=== PATIENT | female | born 1955 | race Caucasian/White ===

== ENCOUNTER 2017-12-09 15:48 | Inpatient (IN) | payer MEDICARE, OTHER ==
[~2017-12-09] VITALS: Ht 162.6 cm; Wt 88.8 kg
[~2017-12-09 15:48] MED LIST: CYCL-394 PO; ESCI20TA29 PO; FURO-150 PO; GABA-341 PO; GLIP-126 PO; LOP25T PO; LOSA25TA96 PO; LYR25C PO; METF500T PO; PANT40TA39 PO; QUET150T2 PO; ROSU20TA PO
[2017-12-09 16:11] LABS: BASOPHILS % (AUTO) 0.6 % (0-1); EOSINOPHILS # (AUTO) 0.1 X10'3 (0-0.9); EOSINOPHILS % (AUTO) 1.6 % (0-6); HEMATOCRIT 27.5 % (35.0-45.0); HEMOGLOBIN 8.8 g/dl (12.0-16.0); LYMPHOCYTES # (AUTO) 1.1 X10'3 (1.1-4.8); LYMPHOCYTES % (AUTO) 14.5 % (21-51); MEAN CORPUSCULAR HGB CONC 32.1 % (33.0-36.5); MEAN CORPUSCULAR VOLUME 71.6 FL (78-98); MEAN PLATELET VOLUME 7.2 FL (7.4-10.4); MONOCYTES # (AUTO) 0.4 X10'3 (0-0.9); MONOCYTES % (AUTO) 5.6 % (2-12); NEUTROPHILS # (AUTO) 6.1 X10'3 (1.8-7.7); NEUTROPHILS % (AUTO) 77.7 % (42-75); PLATELET COUNT 244 X10'3 (140-440); RED BLOOD COUNT 3.84 X10'6 (4.20-5.60); RED CELL DISTRIBUTION WIDTH 20.8 % (11.5-14.5); WHITE BLOOD COUNT 7.8 X10'3 (4.5-11.0)
[2017-12-09 16:23] LABS: PARTIAL THROMBOPLASTIN TIME 23 SECONDS (22-32)
[2017-12-09 16:33] LABS: ALANINE AMINOTRANSFERASE 22 U/L (12-78); ALBUMIN 3.6 G/DL (3.4-5.0); ALBUMIN/GLOBULIN RATIO 0.9 (1.1-1.5); ALKALINE PHOSPHATASE 150 IU/L (46-116); ANION GAP 10 (8-16); ASPARTATE AMINO TRANSFERASE 31 U/L (10-37); BILIRUBIN,TOTAL 0.3 MG/DL (0.1-1.0); BLOOD UREA NITROGEN 23 MG/DL (7-18); BUN/CREATININE RATIO 20.9 (6.6-38.0); CALCIUM 9.7 MG/DL (8.5-10.1); CHLORIDE 103 MMOL/L (99-107); GLUCOSE 320 MG/DL (70-104); POTASSIUM 4.4 MMOL/L (3.5-5.1); SODIUM 140 MMOL/L (135-145); TOTAL CARBON DIOXIDE 26.9 MMOL/L (24-32); TOTAL PROTEIN 7.6 G/DL (6.4-8.2); eGFR 50 ML/MIN
[2017-12-09] MEDS ORDERED: albuterol 2.5 MG/3 ML nebule CONTNEB PRN (16:45)
[2017-12-09] MEDS ORDERED: magnesium 2GM in 50ml NS 50 ML IV ONE (16:50)
[2017-12-09] MEDS ORDERED: LORazepam 2 mg/ml vial IV ONE (19:25)
[2017-12-09] MEDS ORDERED: morphine 4 MG/ML inj SYRINge IV ONE (19:40)
[2017-12-09] MEDS ORDERED: furosemide 10 MG/1 ML 10ml inj IV ONE (19:55)
[2017-12-09] MEDS ORDERED: mag hydrox/Alum hydrox/simeth 30ml oral suspension PO PRN (20:50)
[2017-12-09] MEDS ORDERED: potassium Cl 20 mEq SR tablet PO PRN ×2 (20:50)
[2017-12-09] MEDS ORDERED: ondansetron/PF 4mg/2ml inj IV PRN (20:50)
[2017-12-09] MEDS ORDERED: potassium Cl 40MEQ/NS 500ml 500 ML IV PRN ×2 (20:50)
[2017-12-09] MEDS ORDERED: acetaminophen 325mg tablet PO PRN (20:50)
[2017-12-09] MEDS ORDERED: magnesium hydroxide 30ml (MOM) UD suspension PO PRN (20:50)
[2017-12-09] MEDS ORDERED: cyclobenzaprine 10mg tablet PO PRN (20:55)
[2017-12-09] MEDS ORDERED: glucagon, human recombinant 1mg kit SUBCUT PRN (21:00)
[2017-12-09] MEDS: insulin glargine (Lantus) pen - multi-dose SQ SCH (21:00)
[2017-12-09] MEDS ORDERED: dextrose ORAL solution 15 GM/59 ML bottle PO PRN ×2 (21:00)
[2017-12-09] MEDS ORDERED: dextrose 50%-water 50ml dispensing syringe IV PRN ×2 (21:00)
[2017-12-09] MEDS ORDERED: MESSAGE TO PHARMACY PO ONE (21:00)
[2017-12-09] MEDS ORDERED: LORazepam 2 mg/ml vial IV PRN (21:10)
[2017-12-09 21:12] LABS: HEMOGLOBIN A1C 8.7 % (4.5-6.2)
[2017-12-09] MEDS: QUETIAPINE 150 MG TAB.SR.24H PO SCH (22:23)
[2017-12-09] MEDS ORDERED: ipratropium/albuterol 3ml nebule NEB PRN (22:40)
[2017-12-09] MEDS: ipratropium/albuterol 3ml nebule NEB PRN (23:25)
[2017-12-10] MEDS: pregabalin 25mg capsule PO SCH ×3 (00:02→17:50)
[2017-12-10] MEDS: heparin, porcine 5000 units/ml vial SQ SCH ×3 (00:02→17:48)
[2017-12-10] MEDS: gabapentin 100mg capsule PO SCH ×4 (01:43→20:34)
[2017-12-10] MEDS: morphine 4 MG/ML inj SYRINge IV PRN ×2 (01:44→20:39)
[2017-12-10] MEDS: ipratropium/albuterol 3ml nebule NEB PRN ×3 (03:24→19:57)
[2017-12-10 04:15] LABS: BASOPHILS % (AUTO) 0.5 % (0-1); EOSINOPHILS # (AUTO) 0.2 X10'3 (0-0.9); EOSINOPHILS % (AUTO) 3.1 % (0-6); HEMOGLOBIN 7.7 g/dl (12.0-16.0); LYMPHOCYTES # (AUTO) 1.4 X10'3 (1.1-4.8); LYMPHOCYTES % (AUTO) 23.4 % (21-51); MEAN CORPUSCULAR HGB CONC 32.1 % (33.0-36.5); MEAN CORPUSCULAR VOLUME 71.7 FL (78-98); MEAN PLATELET VOLUME 7.2 FL (7.4-10.4); MONOCYTES # (AUTO) 0.5 X10'3 (0-0.9); MONOCYTES % (AUTO) 8.6 % (2-12); NEUTROPHILS # (AUTO) 3.9 X10'3 (1.8-7.7); NEUTROPHILS % (AUTO) 64.4 % (42-75); PLATELET COUNT 188 X10'3 (140-440); RED BLOOD COUNT 3.35 X10'6 (4.20-5.60); RED CELL DISTRIBUTION WIDTH 20.4 % (11.5-14.5)
[2017-12-10 04:32] LABS: ALBUMIN 3.2 G/DL (3.4-5.0); ANION GAP 7 (8-16); BLOOD UREA NITROGEN 20 MG/DL (7-18); BUN/CREATININE RATIO 22.2 (6.6-38.0); CALCIUM 9.3 MG/DL (8.5-10.1); CHLORIDE 101 MMOL/L (99-107); CHOLESTEROL 176 MG/DL (0-200); GLUCOSE 201 MG/DL (70-104); HDL CHOLESTEROL 35 MG/DL (35-60); LDL CHOLESTEROL 88 MG/DL (50-100); POTASSIUM 4.7 MMOL/L (3.5-5.1); SODIUM 136 MMOL/L (135-145); TOTAL CARBON DIOXIDE 27.7 MMOL/L (24-32); TRIGLYCERIDES 359 MG/DL (20-135); eGFR 63 ML/MIN
[2017-12-10] MEDS: pantoprazole 40mg Tablet.DR PO SCH ×2 (07:49→20:33)
[2017-12-10] MEDS: losartan 25mg tablet PO SCH (07:49)
[2017-12-10] MEDS: citalopram 20mg tablet PO SCH (07:50)
[2017-12-10] MEDS: metoprolol tartrate 25mg tablet PO SCH ×2 (07:50→20:33)
[2017-12-10] MEDS: atorvastatin 10mg tablet PO SCH (07:51)
[2017-12-10] MEDS: furosemide 10 MG/1 ML 10ml inj IV SCH (07:51)
[2017-12-10] MEDS: K and/or MAG REPLACEMENT MC SCH (08:00)
[2017-12-10] MEDS ORDERED: nicotine 21mg patch - 24 hr TD ONE (08:25)
[2017-12-10] MEDS: budesonide 0.5mg/2ml UD nebule IH SCH ×3 (08:57→19:58)
[2017-12-10] MEDS: insulin Lispro (HumaLOG) vial - multi-dose SQ SCH ×2 (09:05→20:49)
[2017-12-10 17:00] VITALS: BP 117/63
[2017-12-10 18:00] VITALS: BP 139/62
[2017-12-10] MEDS: QUETIAPINE 150 MG TAB.SR.24H PO SCH (20:33)
[2017-12-10] MEDS: ALPRAZolam 0.25mg tablet PO PRN (20:38)
[2017-12-10] MEDS: insulin glargine (Lantus) pen - multi-dose SQ SCH (20:46)
[2017-12-10 22:00] VITALS: BP 127/58
[2017-12-11] MEDS: pregabalin 25mg capsule PO SCH ×3 (00:09→16:10)
[2017-12-11] MEDS: heparin, porcine 5000 units/ml vial SQ SCH ×3 (00:10→16:10)
[2017-12-11 02:00] VITALS: BP 123/45
[2017-12-11] MEDS: gabapentin 100mg capsule PO SCH ×4 (02:12→20:03)
[2017-12-11 05:08] LABS: BASOPHILS % (AUTO) 0.7 % (0-1); EOSINOPHILS # (AUTO) 0.2 X10'3 (0-0.9); HEMATOCRIT 24.5 % (35.0-45.0); HEMOGLOBIN 7.9 g/dl (12.0-16.0); LYMPHOCYTES # (AUTO) 1.4 X10'3 (1.1-4.8); MEAN CORPUSCULAR HEMOGLOBIN 23.1 PG (27.0-31.0); MEAN CORPUSCULAR HGB CONC 32.2 % (33.0-36.5); MEAN CORPUSCULAR VOLUME 71.5 FL (78-98); MONOCYTES # (AUTO) 0.4 X10'3 (0-0.9); MONOCYTES % (AUTO) 8.2 % (2-12); NEUTROPHILS # (AUTO) 3.2 X10'3 (1.8-7.7); NEUTROPHILS % (AUTO) 60.1 % (42-75); PLATELET COUNT 188 X10'3 (140-440); RED BLOOD COUNT 3.43 X10'6 (4.20-5.60); RED CELL DISTRIBUTION WIDTH 20.1 % (11.5-14.5); WHITE BLOOD COUNT 5.3 X10'3 (4.5-11.0)
[2017-12-11 05:24] LABS: ANION GAP 9 (8-16); BLOOD UREA NITROGEN 21 MG/DL (7-18); CALCIUM 9.3 MG/DL (8.5-10.1); CHLORIDE 105 MMOL/L (99-107); CREATININE 0.84 MG/DL (0.40-0.90); GLUCOSE 165 MG/DL (70-104); POTASSIUM 4.1 MMOL/L (3.5-5.1); SODIUM 141 MMOL/L (135-145); TOTAL CARBON DIOXIDE 27.1 MMOL/L (24-32); eGFR 69 ML/MIN
[2017-12-11 06:00] VITALS: BP 136/66
[2017-12-11] MEDS: budesonide 0.5mg/2ml UD nebule IH SCH ×2 (07:06→20:59)
[2017-12-11] MEDS: ipratropium/albuterol 3ml nebule NEB PRN ×3 (07:06→20:59)
[2017-12-11] MEDS: K and/or MAG REPLACEMENT MC SCH (08:00)
[2017-12-11] MEDS: furosemide 10 MG/1 ML 10ml inj IV SCH (08:15)
[2017-12-11] MEDS: citalopram 20mg tablet PO SCH (08:16)
[2017-12-11] MEDS: metoprolol tartrate 25mg tablet PO SCH ×2 (08:17→20:03)
[2017-12-11] MEDS: losartan 25mg tablet PO SCH (08:17)
[2017-12-11] MEDS: atorvastatin 10mg tablet PO SCH (08:17)
[2017-12-11] MEDS: pantoprazole 40mg Tablet.DR PO SCH ×2 (08:19→20:03)
[2017-12-11] MEDS: morphine 4 MG/ML inj SYRINge IV PRN ×4 (08:21→21:17)
[2017-12-11] MEDS: insulin Lispro (HumaLOG) vial - multi-dose SQ SCH ×4 (09:45→21:12)
[2017-12-11 11:00] VITALS: BP 139/72
[2017-12-11] MEDS: nicotine 21mg patch - 24 hr TD SCH (12:16)
[2017-12-11] MEDS: ALPRAZolam 0.25mg tablet PO PRN (12:35)
[2017-12-11 15:00] VITALS: BP 115/57
[2017-12-11 16:29] LABS: RED BLOOD COUNT 3.78 X10'6 (4.20-5.60)
[2017-12-11 16:58] LABS: FERRITIN 16 NG/ML (8-252)
[2017-12-11 17:08] LABS: % IRON SATURATION 7 % (11-46); IRON 21 UG/DL (49-151); TOTAL IRON BINDING CAPACITY 314 UG/DL (259-388)
[2017-12-11] MEDS: doxycycline hyclate 100mg tablet.DR PO SCH (17:24)
[2017-12-11 18:00] VITALS: BP 152/71
[2017-12-11] MEDS: QUETIAPINE 150 MG TAB.SR.24H PO SCH (20:03)
[2017-12-11] MEDS: insulin glargine (Lantus) pen - multi-dose SQ SCH (21:11)
[2017-12-11 22:00] VITALS: BP 120/62
[2017-12-12] MEDS: ALPRAZolam 0.25mg tablet PO PRN ×2 (00:19→08:01)
[2017-12-12] MEDS: pregabalin 25mg capsule PO SCH ×2 (00:19→08:08)
[2017-12-12] MEDS: heparin, porcine 5000 units/ml vial SQ SCH ×2 (00:20→08:01)
[2017-12-12 02:00] VITALS: BP 94/52
[2017-12-12] MEDS: gabapentin 100mg capsule PO SCH ×2 (02:05→08:01)
[2017-12-12 05:46] LABS: BASOPHILS % (AUTO) 0.9 % (0-1); EOSINOPHILS # (AUTO) 0.2 X10'3 (0-0.9); EOSINOPHILS % (AUTO) 3.4 % (0-6); HEMATOCRIT 24.5 % (35.0-45.0); HEMOGLOBIN 7.9 g/dl (12.0-16.0); LYMPHOCYTES # (AUTO) 1.3 X10'3 (1.1-4.8); LYMPHOCYTES % (AUTO) 22.9 % (21-51); MEAN CORPUSCULAR HGB CONC 32.1 % (33.0-36.5); MEAN CORPUSCULAR VOLUME 71.6 FL (78-98); MEAN PLATELET VOLUME 7.6 FL (7.4-10.4); MONOCYTES # (AUTO) 0.5 X10'3 (0-0.9); NEUTROPHILS # (AUTO) 3.6 X10'3 (1.8-7.7); NEUTROPHILS % (AUTO) 63.8 % (42-75); PLATELET COUNT 187 X10'3 (140-440); RED BLOOD COUNT 3.43 X10'6 (4.20-5.60); RED CELL DISTRIBUTION WIDTH 19.6 % (11.5-14.5); WHITE BLOOD COUNT 5.7 X10'3 (4.5-11.0)
[2017-12-12 06:00] VITALS: BP 125/63
[2017-12-12 06:12] LABS: ALBUMIN 3.1 G/DL (3.4-5.0); ANION GAP 8 (8-16); BLOOD UREA NITROGEN 23 MG/DL (7-18); BUN/CREATININE RATIO 26.4 (6.6-38.0); CALCIUM 9.5 MG/DL (8.5-10.1); CHLORIDE 106 MMOL/L (99-107); CREATININE 0.87 MG/DL (0.40-0.90); GLUCOSE 172 MG/DL (70-104); POTASSIUM 4.6 MMOL/L (3.5-5.1); SODIUM 141 MMOL/L (135-145); TOTAL CARBON DIOXIDE 27.2 MMOL/L (24-32); eGFR 66 ML/MIN
[2017-12-12] MEDS: insulin Lispro (HumaLOG) vial - multi-dose SQ SCH (07:57)
[2017-12-12] MEDS: furosemide 10 MG/1 ML 10ml inj IV SCH (08:00)
[2017-12-12] MEDS: K and/or MAG REPLACEMENT MC SCH (08:00)
[2017-12-12] MEDS: morphine 4 MG/ML inj SYRINge IV PRN (08:02)
[2017-12-12] MEDS: citalopram 20mg tablet PO SCH (08:03)
[2017-12-12] MEDS: doxycycline hyclate 100mg tablet.DR PO SCH (08:03)
[2017-12-12] MEDS: nicotine 21mg patch - 24 hr TD SCH (08:03)
[2017-12-12] MEDS: atorvastatin 10mg tablet PO SCH (08:03)
[2017-12-12] MEDS: pantoprazole 40mg Tablet.DR PO SCH (08:03)
[2017-12-12] MEDS: losartan 25mg tablet PO SCH (08:03)
[2017-12-12] MEDS: metoprolol tartrate 25mg tablet PO SCH (08:03)
[2017-12-12] MEDS: budesonide 0.5mg/2ml UD nebule IH SCH (09:29)
[2017-12-12] MEDS: ipratropium/albuterol 3ml nebule NEB PRN (09:29)
[2017-12-12 11:00] VITALS: BP 128/65
[2017-12-12] MEDS ORDERED: DOXY-200 PO (12:00)
[2017-12-12] MEDS ORDERED: IPRA4AER IH (12:00)
[2017-12-12] MEDS ORDERED: NICO-687 TD (12:00)
== END 2017-12-12 14:15 | disposition home or self-care (01) | DRG 190 ==
LOC: ER 15:48 → ED HOLD 20:50 → PCU 3S 12-10 16:17
PROVIDERS: ADMIT Family Medicine; ATTEND Family Medicine
DX: J44.1 Chronic obstructive pulmonary disease with (acute) exacerbation (principal); I50.23 Acute on chronic systolic (congestive) heart failure; I48.91 Unspecified atrial fibrillation; D50.9 Iron deficiency anemia, unspecified; E11.9 Type 2 diabetes mellitus without complications; E78.00 Pure hypercholesterolemia, unspecified; F03.90 Unspecified dementia, unspecified severity, without behavioral disturbance, psychotic disturbance, mood disturbance, and anxiety; E78.5 Hyperlipidemia, unspecified; F41.9 Anxiety disorder, unspecified; M79.7 Fibromyalgia; F41.0 Panic disorder [episodic paroxysmal anxiety]; N28.9 Disorder of kidney and ureter, unspecified; F32.9 Major depressive disorder, single episode, unspecified; G89.29 Other chronic pain; M19.90 Unspecified osteoarthritis, unspecified site; R74.8 Abnormal levels of other serum enzymes; I11.0 Hypertensive heart disease with heart failure; I25.10 Atherosclerotic heart disease of native coronary artery without angina pectoris; K21.9 Gastro-esophageal reflux disease without esophagitis; F17.210 Nicotine dependence, cigarettes, uncomplicated; F12.90 Cannabis use, unspecified, uncomplicated; Z90.710 Acquired absence of both cervix and uterus; Z95.5 Presence of coronary angioplasty implant and graft; Z90.49 Acquired absence of other specified parts of digestive tract; Z98.51 Tubal ligation status; Z88.6 Allergy status to analgesic agent; Z91.048 Other nonmedicinal substance allergy status; Z91.040 Latex allergy status; Z88.0 Allergy status to penicillin; Z88.8 Allergy status to other drugs, medicaments and biological substances; Z79.84 Long term (current) use of oral hypoglycemic drugs; Z79.899 Other long term (current) drug therapy; Z81.1 Family history of alcohol abuse and dependence
CPT/HCPCS: 36415; 71045; 80048; 80053; 80061; 82728; 82948; 83036; 83540; 83550; 83880; 84484; 85025; 85045; 85610; 85730; 87070; 93005; 93306; 94640; 94644; 94760; 96365; 96375; 99285; J1644; J1815; J1940; J2060; J2270; J3475; J7626

== ENCOUNTER 2017-12-21 09:37 | Emergency (ER) | payer MEDICARE, OTHER ==
[~2017-12-21] VITALS: Ht 162.6 cm; Wt 86.4 kg
[~2017-12-21 09:37] MED LIST changes: +DOXY-200 PO; +IPRA4AER IH; +NICO-687 TD
[2017-12-21] MEDS ORDERED: LORazepam 2 mg/ml vial IV ONE (09:45)
[2017-12-21] MEDS ORDERED: normal saline 1000ML IV soln IVB ONE (09:45)
[2017-12-21] MEDS ORDERED: furosemide 10 MG/1 ML 10ml inj IV ONE (09:45)
[2017-12-21 10:19] LABS: BASOPHILS % (AUTO) 0.5 % (0-1); EOSINOPHILS # (AUTO) 0.1 X10'3 (0-0.9); EOSINOPHILS % (AUTO) 2.3 % (0-6); HEMATOCRIT 24.2 % (35.0-45.0); HEMOGLOBIN 7.8 g/dl (12.0-16.0); LYMPHOCYTES # (AUTO) 0.7 X10'3 (1.1-4.8); LYMPHOCYTES % (AUTO) 12.6 % (21-51); MEAN CORPUSCULAR HEMOGLOBIN 23.1 PG (27.0-31.0); MEAN CORPUSCULAR HGB CONC 32.2 % (33.0-36.5); MEAN CORPUSCULAR VOLUME 71.9 FL (78-98); MEAN PLATELET VOLUME 7.9 FL (7.4-10.4); MONOCYTES # (AUTO) 0.3 X10'3 (0-0.9); MONOCYTES % (AUTO) 5.3 % (2-12); NEUTROPHILS # (AUTO) 4.1 X10'3 (1.8-7.7); NEUTROPHILS % (AUTO) 79.3 % (42-75); PLATELET COUNT 126 X10'3 (140-440); RED BLOOD COUNT 3.36 X10'6 (4.20-5.60); RED CELL DISTRIBUTION WIDTH 20.6 % (11.5-14.5); WHITE BLOOD COUNT 5.2 X10'3 (4.5-11.0)
[2017-12-21 10:40] LABS: ALANINE AMINOTRANSFERASE 30 U/L (12-78); ALBUMIN 3.3 G/DL (3.4-5.0); ALBUMIN/GLOBULIN RATIO 0.8 (1.1-1.5); ALKALINE PHOSPHATASE 115 IU/L (46-116); ANION GAP 9 (8-16); ASPARTATE AMINO TRANSFERASE 31 U/L (10-37); BILIRUBIN,TOTAL 0.4 MG/DL (0.1-1.0); BLOOD UREA NITROGEN 17 MG/DL (7-18); CALCIUM 9.5 MG/DL (8.5-10.1); CHLORIDE 108 MMOL/L (99-107); CREATININE 0.85 MG/DL (0.40-0.90); GLUCOSE 221 MG/DL (70-104); POTASSIUM 4.6 MMOL/L (3.5-5.1); SODIUM 143 MMOL/L (135-145); TOTAL CARBON DIOXIDE 25.8 MMOL/L (24-32); TOTAL PROTEIN 7.3 G/DL (6.4-8.2); eGFR 68 ML/MIN
[2017-12-21] MEDS ORDERED: ipratropium/albuterol 3ml nebule NEB ONE (10:50)
[2017-12-21] MEDS ORDERED: methylPREDNISolone sod succ 125mg/2ml vial IV ONE (10:50)
[2017-12-21 11:46] VITALS: BP 168/73
== END 2017-12-21 11:58 | disposition home or self-care (01) ==
LOC: ER 09:38
DX: J44.1 Chronic obstructive pulmonary disease with (acute) exacerbation (principal); I11.0 Hypertensive heart disease with heart failure; I50.9 Heart failure, unspecified; F41.9 Anxiety disorder, unspecified; I48.91 Unspecified atrial fibrillation; I25.10 Atherosclerotic heart disease of native coronary artery without angina pectoris; E78.00 Pure hypercholesterolemia, unspecified; K21.9 Gastro-esophageal reflux disease without esophagitis; E11.9 Type 2 diabetes mellitus without complications; M19.90 Unspecified osteoarthritis, unspecified site; F12.10 Cannabis abuse, uncomplicated; Z90.49 Acquired absence of other specified parts of digestive tract; Z90.710 Acquired absence of both cervix and uterus; Z98.890 Other specified postprocedural states; Z60.2 Problems related to living alone; Z88.8 Allergy status to other drugs, medicaments and biological substances; Z88.0 Allergy status to penicillin; Z91.040 Latex allergy status; Z79.84 Long term (current) use of oral hypoglycemic drugs; Z79.899 Other long term (current) drug therapy; Z98.61 Coronary angioplasty status
CPT/HCPCS: 36415; 71045; 80053; 83880; 85025; 93005; 94640; 94760; 96374; 96375; 99285; J1940; J2060; J2930

== ENCOUNTER 2018-05-07 12:42 | Emergency (ER) | payer MEDICARE, OTHER ==
[~2018-05-07] VITALS: Ht 162.6 cm; Wt 77.2 kg
[~2018-05-07 12:42] MED LIST changes: -DOXY-200 PO; -IPRA4AER IH; -LOSA25TA96 PO; +POTA20PA40; +[UNRECOGNIZED DRUG - REMARK]
[2018-05-07 12:58] LABS: BASOPHILS % (AUTO) 0.5 % (0-1); EOSINOPHILS # (AUTO) 0.2 X10'3 (0-0.9); EOSINOPHILS % (AUTO) 3.1 % (0-6); HEMATOCRIT 24.8 % (35.0-45.0); HEMOGLOBIN 7.6 g/dl (12.0-16.0); LYMPHOCYTES # (AUTO) 0.9 X10'3 (1.1-4.8); LYMPHOCYTES % (AUTO) 12.3 % (21-51); MEAN CORPUSCULAR HEMOGLOBIN 21.8 PG (27.0-31.0); MEAN CORPUSCULAR HGB CONC 30.6 % (33.0-36.5); MEAN CORPUSCULAR VOLUME 71.2 FL (78-98); MEAN PLATELET VOLUME 8.1 FL (7.4-10.4); MONOCYTES # (AUTO) 0.6 X10'3 (0-0.9); MONOCYTES % (AUTO) 8.6 % (2-12); NEUTROPHILS # (AUTO) 5.4 X10'3 (1.8-7.7); NEUTROPHILS % (AUTO) 75.5 % (42-75); PLATELET COUNT 350 X10'3 (140-440); RED BLOOD COUNT 3.48 X10'6 (4.20-5.60); WHITE BLOOD COUNT 7.2 X10'3 (4.5-11.0)
[2018-05-07 13:07] LABS: INR 1.2 INR; PARTIAL THROMBOPLASTIN TIME 24 SECONDS (22-32); PROTHROMBIN TIME 12.7 SECONDS (9.0-12.0)
[2018-05-07] MEDS ORDERED: furosemide 10 MG/1 ML 10ml inj IV ONE (13:10)
[2018-05-07 13:13] LABS: ALANINE AMINOTRANSFERASE 25 U/L (12-78); ALBUMIN 3.5 G/DL (3.4-5.0); ALKALINE PHOSPHATASE 140 IU/L (46-116); ANION GAP 9 (8-16); ASPARTATE AMINO TRANSFERASE 20 U/L (10-37); BILIRUBIN,TOTAL 0.6 MG/DL (0.1-1.0); BLOOD UREA NITROGEN 26 MG/DL (7-18); BUN/CREATININE RATIO 17.9 (6.6-38.0); CALCIUM 9.4 MG/DL (8.5-10.1); CHLORIDE 99 MMOL/L (99-107); CREATININE 1.45 MG/DL (0.40-0.90); GLUCOSE 336 MG/DL (70-104); SODIUM 131 MMOL/L (135-145); TOTAL CARBON DIOXIDE 22.6 MMOL/L (24-32); TOTAL PROTEIN 6.9 G/DL (6.4-8.2); eGFR 37 ML/MIN
[2018-05-07] MEDS ORDERED: LORazepam 2 mg/ml vial IV ONE (13:35)
[2018-05-07 13:44] LABS: ANISOCYTOSIS 3+; HYPOCHROMASIA 2+; PLATELET ESTIMATE NORMAL
[2018-05-07 13:45] LABS: ELLIPTOCYTES 1+; MICROCYTOSIS 1+; POIKILOCYTOSIS 1+; POLYCHROMASIA FEW; TEAR DROP CELLS 1+
[2018-05-07 14:43] VITALS: BP 112/62
[2018-05-07] MEDS ORDERED: triamcinolone acetonide 40mg/ml inj IM ONE (15:10)
== END 2018-05-07 15:51 | disposition home or self-care (01) ==
LOC: ER 12:42
DX: D64.9 Anemia, unspecified (principal); I11.0 Hypertensive heart disease with heart failure; I50.9 Heart failure, unspecified; I25.10 Atherosclerotic heart disease of native coronary artery without angina pectoris; E78.00 Pure hypercholesterolemia, unspecified; J44.9 Chronic obstructive pulmonary disease, unspecified; K21.9 Gastro-esophageal reflux disease without esophagitis; E11.9 Type 2 diabetes mellitus without complications; M19.90 Unspecified osteoarthritis, unspecified site; G89.29 Other chronic pain; F12.10 Cannabis abuse, uncomplicated; Z90.49 Acquired absence of other specified parts of digestive tract; Z90.710 Acquired absence of both cervix and uterus; Z95.1 Presence of aortocoronary bypass graft; Z98.51 Tubal ligation status; Z88.0 Allergy status to penicillin; Z88.8 Allergy status to other drugs, medicaments and biological substances; Z91.040 Latex allergy status
CPT/HCPCS: 36415; 71045; 80053; 83880; 84484; 85025; 85610; 85730; 86885; 86900; 86901; 86920; 93005; 96372; 96374; 96375; 99285; J1940; J2060; J3301

== ENCOUNTER 2018-05-16 19:21 | Emergency (ER) | payer MEDICARE, OTHER ==
[~2018-05-16] VITALS: Ht 162.6 cm; Wt 62.1 kg
[2018-05-16 19:42] VITALS: BP 121/80
[2018-05-16 21:01] LABS: BASOPHILS % (AUTO) 0.5 % (0-1); EOSINOPHILS # (AUTO) 0.2 X10'3 (0-0.9); EOSINOPHILS % (AUTO) 2.5 % (0-6); HEMATOCRIT 28.3 % (35.0-45.0); HEMOGLOBIN 8.6 g/dl (12.0-16.0); LYMPHOCYTES # (AUTO) 1.4 X10'3 (1.1-4.8); LYMPHOCYTES % (AUTO) 18.2 % (21-51); MEAN CORPUSCULAR HEMOGLOBIN 21.5 PG (27.0-31.0); MEAN CORPUSCULAR HGB CONC 30.5 % (33.0-36.5); MEAN CORPUSCULAR VOLUME 70.7 FL (78-98); MEAN PLATELET VOLUME 7.6 FL (7.4-10.4); MONOCYTES # (AUTO) 0.7 X10'3 (0-0.9); MONOCYTES % (AUTO) 9.7 % (2-12); NEUTROPHILS # (AUTO) 5.3 X10'3 (1.8-7.7); NEUTROPHILS % (AUTO) 69.1 % (42-75); PLATELET COUNT 404 X10'3 (140-440); RED BLOOD COUNT 4.01 X10'6 (4.20-5.60); RED CELL DISTRIBUTION WIDTH 22.4 % (11.5-14.5); WHITE BLOOD COUNT 7.7 X10'3 (4.5-11.0)
[2018-05-16] MEDS ORDERED: dexamethasone 4mg tablet PO ONE (21:05)
[2018-05-16 21:16] LABS: ALANINE AMINOTRANSFERASE 58 U/L (12-78); ALBUMIN 3.7 G/DL (3.4-5.0); ALKALINE PHOSPHATASE 160 IU/L (46-116); ANION GAP 9 (8-16); ASPARTATE AMINO TRANSFERASE 20 U/L (10-37); BILIRUBIN,TOTAL 0.6 MG/DL (0.1-1.0); BLOOD UREA NITROGEN 21 MG/DL (7-18); BUN/CREATININE RATIO 15.4 (6.6-38.0); CALCIUM 9.4 MG/DL (8.5-10.1); CHLORIDE 97 MMOL/L (99-107); CREATININE 1.36 MG/DL (0.40-0.90); GLUCOSE 364 MG/DL (70-104); POTASSIUM 3.7 MMOL/L (3.5-5.1); SODIUM 134 MMOL/L (135-145); TOTAL CARBON DIOXIDE 27.9 MMOL/L (24-32); TOTAL PROTEIN 7.3 G/DL (6.4-8.2); eGFR 39 ML/MIN
[2018-05-16 21:43] LABS: ANISOCYTOSIS 3+; PLATELET ESTIMATE NORMAL; POLYCHROMASIA FEW
[2018-05-16 21:44] LABS: ELLIPTOCYTES FEW; STOMATOCYTES FEW; TEAR DROP CELLS FEW
[2018-05-16] MEDS ORDERED: PRED20TA PO (21:56)
== END 2018-05-16 22:11 | disposition home or self-care (01) ==
LOC: ER 19:21
DX: T78.40XA Allergy, unspecified, initial encounter (principal); D50.9 Iron deficiency anemia, unspecified; D69.0 Allergic purpura; I11.0 Hypertensive heart disease with heart failure; I50.9 Heart failure, unspecified; I48.91 Unspecified atrial fibrillation; I25.10 Atherosclerotic heart disease of native coronary artery without angina pectoris; E78.00 Pure hypercholesterolemia, unspecified; J44.9 Chronic obstructive pulmonary disease, unspecified; K21.9 Gastro-esophageal reflux disease without esophagitis; E11.9 Type 2 diabetes mellitus without complications; F41.9 Anxiety disorder, unspecified; F32.9 Major depressive disorder, single episode, unspecified; G89.29 Other chronic pain; F12.10 Cannabis abuse, uncomplicated; Z90.49 Acquired absence of other specified parts of digestive tract; Z88.8 Allergy status to other drugs, medicaments and biological substances; Z91.040 Latex allergy status; Z88.0 Allergy status to penicillin; Z90.710 Acquired absence of both cervix and uterus; Z98.51 Tubal ligation status; Z79.899 Other long term (current) drug therapy; X58.XXXA Exposure to other specified factors, initial encounter
CPT/HCPCS: 36415; 80053; 85025; 99284; J8540

== ENCOUNTER 2018-07-25 18:24 | Inpatient (IN) | payer MEDICARE, OTHER ==
[~2018-07-25] VITALS: Ht 162.6 cm; Wt 75.0 kg
[2018-07-25] MEDS ORDERED: ketorolac trometh. 30mg/ml inj. IM ONE (19:10)
[2018-07-25] MEDS ORDERED: albuterol 2.5 MG/3 ML nebule CONTNEB PRN (19:10)
[2018-07-25] MEDS ORDERED: methylPREDNISolone sod succ 125mg/2ml vial IV ONE (19:10)
[2018-07-25] MEDS ORDERED: ketorolac tromethamine 15mg/ml inj. IM ONE (19:20)
[2018-07-25 19:42] LABS: BASOPHILS % (AUTO) 0.3 % (0-1); EOSINOPHILS # (AUTO) 0.2 X10'3 (0-0.9); EOSINOPHILS % (AUTO) 2.2 % (0-6); HEMATOCRIT 26.8 % (35.0-45.0); HEMOGLOBIN 8.1 g/dl (12.0-16.0); LYMPHOCYTES # (AUTO) 0.9 X10'3 (1.1-4.8); LYMPHOCYTES % (AUTO) 7.5 % (21-51); MEAN CORPUSCULAR HEMOGLOBIN 21.6 PG (27.0-31.0); MEAN CORPUSCULAR HGB CONC 30.2 % (33.0-36.5); MEAN CORPUSCULAR VOLUME 71.5 FL (78-98); MEAN PLATELET VOLUME 8.2 FL (7.4-10.4); MONOCYTES # (AUTO) 0.6 X10'3 (0-0.9); MONOCYTES % (AUTO) 5.3 % (2-12); NEUTROPHILS # (AUTO) 9.8 X10'3 (1.8-7.7); NEUTROPHILS % (AUTO) 84.7 % (42-75); PLATELET COUNT 369 X10'3 (140-440); RED BLOOD COUNT 3.75 X10'6 (4.20-5.60); WHITE BLOOD COUNT 11.6 X10'3 (4.5-11.0)
[2018-07-25 20:01] LABS: ALANINE AMINOTRANSFERASE 76 U/L (12-78); ALBUMIN 3.4 G/DL (3.4-5.0); ALBUMIN/GLOBULIN RATIO 0.8 (1.1-1.5); ALKALINE PHOSPHATASE 206 IU/L (46-116); ANION GAP 14 (8-16); ASPARTATE AMINO TRANSFERASE 84 U/L (10-37); BILIRUBIN,TOTAL 0.3 MG/DL (0.1-1.0); BLOOD UREA NITROGEN 47 MG/DL (7-18); BUN/CREATININE RATIO 24.5 (6.6-38.0); CALCIUM 9.5 MG/DL (8.5-10.1); CHLORIDE 101 MMOL/L (99-107); CREATININE 1.92 MG/DL (0.40-0.90); GLUCOSE 243 MG/DL (70-104); POTASSIUM 5.6 MMOL/L (3.5-5.1); SODIUM 137 MMOL/L (135-145); TOTAL CARBON DIOXIDE 22.1 MMOL/L (24-32); TOTAL PROTEIN 7.5 G/DL (6.4-8.2); eGFR 26 ML/MIN
[2018-07-25 20:24] LABS: ANISOCYTOSIS 3+; ELLIPTOCYTES FEW; PLATELET ESTIMATE NORMAL; POLYCHROMASIA FEW; STOMATOCYTES FEW; TEAR DROP CELLS FEW
[2018-07-25] MEDS ORDERED: normal saline 1000ML IV soln IVB ONE (20:25)
[2018-07-25] MEDS ORDERED: normal saline 1000ML IV soln IV ONE (20:30)
[2018-07-25] MEDS ORDERED: levoFLOXACIN-Levaquin 750MG/D5 150 ML IV ONE (20:30)
[2018-07-25] MEDS ORDERED: PREG100C PO (20:42)
[2018-07-25] MEDS ORDERED: ATOR20TA PO (20:42)
[2018-07-25] MEDS ORDERED: BUSP30TA2 PO (20:42)
[2018-07-25] MEDS ORDERED: magnesium hydroxide 30ml (MOM) UD suspension PO PRN (20:55)
[2018-07-25] MEDS ORDERED: acetaminophen 325mg tablet PO PRN ×2 (20:55)
[2018-07-25] MEDS ORDERED: diphenhydrAMINE 25mg capsule PO PRN (20:55)
[2018-07-25] MEDS ORDERED: bisacodyl 10mg suppository rectal RC PRN (20:55)
[2018-07-25] MEDS ORDERED: metoclopramide 5 mg/ml inj IV PRN (20:55)
[2018-07-25] MEDS ORDERED: morphine 2 MG/ML inj. syringe IV PRN (20:55)
[2018-07-25] MEDS ORDERED: HYDROcodone/acetaminophen 5mg/325mg tablet PO PRN (20:55)
[2018-07-25] MEDS ORDERED: diphenhydrAMINE 50 mg/ml inj IV PRN (20:55)
[2018-07-25] MEDS ORDERED: HYDROcodone/acetaminophen 10/325mg tab PO PRN (20:55)
[2018-07-25] MEDS ORDERED: acetaminophen 650mg rectal suppository RC PRN (20:55)
[2018-07-25] MEDS ORDERED: mag hydrox/Alum hydrox/simeth 30ml oral suspension PO PRN (20:55)
[2018-07-25] MEDS ORDERED: temazepam 15mg capsule PO PRN (21:00)
[2018-07-25] MEDS: normal saline 1000ml 1,000 ML IV SCH ×2 (21:13→23:33)
[2018-07-25] MEDS: QUETIAPINE 150 MG TAB.SR.24H PO SCH (21:22)
[2018-07-25 21:23] LABS: CLARITY,URINE CLEAR (Clear); COLOR,URINE YELLOW (Yellow); GLUCOSE, URINE NEGATIVE (Neg); KETONES,URINE NEGATIVE (Neg); LEUKOCYTE ESTERASE ,URINE NEGATIVE (Neg); NITRITES, URINE NEGATIVE (Neg); OCCULT BLOOD,URINE NEGATIVE (Neg); PH,URINE 5.5 (4.8-8.0); PROTEIN,URINE NEGATIVE (Neg); UROBILINOGEN,URINE 0.2 E.U/dL (0.2-1.0)
[2018-07-25] MEDS ORDERED: MESSAGE TO PHARMACY PO ONE (21:30)
[2018-07-25] MEDS ORDERED: dextrose 50%-water 50ml dispensing syringe IV PRN ×2 (21:30)
[2018-07-25] MEDS ORDERED: dextrose ORAL solution 15 GM/59 ML bottle PO PRN ×2 (21:30)
[2018-07-25] MEDS ORDERED: glucagon, human recombinant 1mg kit SUBCUT PRN (21:30)
[2018-07-25 21:34] LABS: HEMOGLOBIN A1C 8.5 % (4.5-6.2)
[2018-07-25 21:35] LABS: MAGNESIUM 1.4 MG/DL (1.5-2.4); PHOSPHORUS 4.7 MG/DL (2.3-4.5)
[2018-07-25 21:38] LABS: UA COLLECTION TYPE CLN CATCH MIDSTREAM
[2018-07-25 21:39] LABS: PARTIAL THROMBOPLASTIN TIME 24 SECONDS (22-32); PROTHROMBIN TIME 10.5 SECONDS (9.0-12.0)
[2018-07-25 21:53] LABS: D-DIMER 0.54 MG/L FEU (0-0.50)
[2018-07-25] MEDS: HYDROmorphone 1 mg/ml syringe IV PRN (21:57)
[2018-07-25 22:03] LABS: TROPONIN I 0.11 NG/ML (0.0-0.05)
[2018-07-25] MEDS: montelukast 10mg tablet PO SCH (22:17)
[2018-07-25 22:30] LABS: ABG BASE EXCESS -6.2 mmol/L (-2.0-3.0); ABG HCO3 19.9 mmol/L (22.0-26.0); ABG OXYGEN SATURATION 92.4 % (95-98); ABG PCO2 (T) 41.2 mmHg (32.0-45.0); ABG PO2 (T) 65.5 mmHg (83-108); FMetHb 0.1 % (0.3-1.12); FO2Hb 89.5 % (94-100); PATIENT TEMPERATURE 36.7; TOTAL HEMOGLOBIN 8.3 G/dl (12.0-16.0)
[2018-07-25 23:00] VITALS: BP 139/62
[2018-07-25] MEDS: ipratropium/albuterol 3ml nebule NEB PRN (23:56)
[2018-07-26] MEDS ORDERED: albuterol 2.5 MG/3 ML nebule NEB ONE (00:25)
[2018-07-26] MEDS ORDERED: sodium polystyrene sulfonate 15gm/60ml oral suspension PO ONE (00:25)
[2018-07-26] MEDS ORDERED: magnesium 4gm in 100ml NS 100 ML IV PRN (00:30)
[2018-07-26] MEDS ORDERED: magnesium 1gm/100ml D5W IVPB 100 ML IV PRN (00:30)
[2018-07-26] MEDS ORDERED: magnesium Cl slow-release 64mg tablet PO PRN (00:30)
[2018-07-26] MEDS ORDERED: pneumococcal 23-VAL P-sac vacc 25 mcg/0.5ml vial IMVAC ONE (00:55)
[2018-07-26] MEDS: gabapentin 300mg capsule PO SCH ×4 (02:30→20:11)
[2018-07-26] MEDS: HYDROmorphone 1 mg/ml syringe IV PRN ×5 (02:45→23:07)
[2018-07-26 07:07] VITALS: BP 102/66
[2018-07-26 07:26] LABS: BASOPHILS % (AUTO) 0.1 % (0-1); EOSINOPHILS # (AUTO) 0.1 X10'3 (0-0.9); EOSINOPHILS % (AUTO) 1.1 % (0-6); HEMATOCRIT 24.7 % (35.0-45.0); HEMOGLOBIN 7.5 g/dl (12.0-16.0); LYMPHOCYTES # (AUTO) 0.4 X10'3 (1.1-4.8); LYMPHOCYTES % (AUTO) 5.4 % (21-51); MEAN CORPUSCULAR HGB CONC 30.5 % (33.0-36.5); MEAN PLATELET VOLUME 8.2 FL (7.4-10.4); MONOCYTES # (AUTO) 0.2 X10'3 (0-0.9); NEUTROPHILS # (AUTO) 6.6 X10'3 (1.8-7.7); NEUTROPHILS % (AUTO) 90.4 % (42-75); PLATELET COUNT 263 X10'3 (140-440); RED BLOOD COUNT 3.43 X10'6 (4.20-5.60); RED CELL DISTRIBUTION WIDTH 21.6 % (11.5-14.5); WHITE BLOOD COUNT 7.3 X10'3 (4.5-11.0)
[2018-07-26 07:37] LABS: ALANINE AMINOTRANSFERASE 107 U/L (12-78); ALBUMIN 3.2 G/DL (3.4-5.0); ALBUMIN/GLOBULIN RATIO 0.8 (1.1-1.5); ALKALINE PHOSPHATASE 152 IU/L (46-116); ANION GAP 15 (8-16); ASPARTATE AMINO TRANSFERASE 78 U/L (10-37); BILIRUBIN,TOTAL 0.2 MG/DL (0.1-1.0); BLOOD UREA NITROGEN 57 MG/DL (7-18); BUN/CREATININE RATIO 32.4 (6.6-38.0); CALCIUM 8.7 MG/DL (8.5-10.1); CHLORIDE 103 MMOL/L (99-107); CHOL/HDL RATIO 2.3 (0.00-4.99); CHOLESTEROL 142 MG/DL (0-200); CREATININE 1.76 MG/DL (0.40-0.90); GLUCOSE 350 MG/DL (70-104); HDL CHOLESTEROL 63 MG/DL (35-60); LDL CHOLESTEROL 73 MG/DL (50-100); POTASSIUM 5.3 MMOL/L (3.5-5.1); SODIUM 138 MMOL/L (135-145); TOTAL CARBON DIOXIDE 20.5 MMOL/L (24-32); TOTAL PROTEIN 7.1 G/DL (6.4-8.2); TRIGLYCERIDES 76 MG/DL (20-135); eGFR 29 ML/MIN
[2018-07-26] MEDS: docusate sod 100mg capsule PO SCH ×2 (08:00→20:00)
[2018-07-26] MEDS: metoprolol tartrate 25mg tablet PO SCH ×2 (08:00→20:10)
[2018-07-26] MEDS ORDERED: enoxaparin 40mg/0.4ml syringe SUBCUT SCH (08:00)
[2018-07-26] MEDS: nitroGLYCERIN 0.1mg/hour patch TD SCH (08:00)
[2018-07-26] MEDS ORDERED: heparin, porcine 5000 units/ml vial SQ SCH (08:00)
[2018-07-26] MEDS: methylPREDNISolone sod succ 125mg/2ml vial IV SCH ×2 (08:04→20:09)
[2018-07-26] MEDS: furosemide 40mg/4ml inj IV SCH ×2 (08:04→20:09)
[2018-07-26] MEDS: pantoprazole 40mg Tablet.DR PO SCH ×2 (08:06→20:11)
[2018-07-26] MEDS: citalopram 20mg tablet PO SCH (08:07)
[2018-07-26] MEDS: montelukast 10mg tablet PO SCH (08:08)
[2018-07-26] MEDS: nicotine 21mg patch - 24 hr TD SCH (08:13)
[2018-07-26] MEDS ORDERED: aspirin 81mg tab.chew PO SCH (08:30)
[2018-07-26] MEDS: insulin Lispro (HumaLOG) vial - multi-dose SQ SCH ×3 (08:34→21:40)
[2018-07-26 09:41] LABS: ANISOCYTOSIS 3+; HYPOCHROMASIA 1+; MICROCYTOSIS 1+; PLATELET ESTIMATE NORMAL; POLYCHROMASIA 1+
[2018-07-26 10:23] LABS: % IRON SATURATION 5 % (11-46); IRON 21 UG/DL (49-151); TOTAL IRON BINDING CAPACITY 454 UG/DL (259-388)
[2018-07-26 12:37] VITALS: BP 124/54
[2018-07-26 18:20] LABS: BASOPHILS % (AUTO) 0.1 % (0-1); EOSINOPHILS # (AUTO) 0.1 X10'3 (0-0.9); EOSINOPHILS % (AUTO) 1.2 % (0-6); HEMATOCRIT 25.4 % (35.0-45.0); HEMOGLOBIN 7.7 g/dl (12.0-16.0); LYMPHOCYTES # (AUTO) 0.6 X10'3 (1.1-4.8); LYMPHOCYTES % (AUTO) 7.1 % (21-51); MEAN CORPUSCULAR HEMOGLOBIN 21.6 PG (27.0-31.0); MEAN CORPUSCULAR HGB CONC 30.3 % (33.0-36.5); MEAN CORPUSCULAR VOLUME 71.2 FL (78-98); MEAN PLATELET VOLUME 7.7 FL (7.4-10.4); MONOCYTES # (AUTO) 0.7 X10'3 (0-0.9); NEUTROPHILS # (AUTO) 7.6 X10'3 (1.8-7.7); NEUTROPHILS % (AUTO) 83.6 % (42-75); PLATELET COUNT 346 X10'3 (140-440); RED BLOOD COUNT 3.56 X10'6 (4.20-5.60); RED CELL DISTRIBUTION WIDTH 21.5 % (11.5-14.5); WHITE BLOOD COUNT 9.1 X10'3 (4.5-11.0)
[2018-07-26 19:00] VITALS: BP 137/90
[2018-07-26] MEDS: ipratropium/albuterol 3ml nebule NEB PRN ×2 (20:05→23:48)
[2018-07-26] MEDS: sodium ferric gluc complex inj 125 MG in normal saline 100ml IV soln 100 ML IV SCH (20:09)
[2018-07-26] MEDS: ondansetron/PF 4mg/2ml inj IV PRN (20:45)
[2018-07-26] MEDS: insulin glargine (Lantus) pen - multi-dose SQ SCH (21:39)
[2018-07-26] MEDS: ALPRAZolam 0.25mg tablet PO PRN (21:41)
[2018-07-26 21:51] LABS: PLATELET ESTIMATE NORMAL; POLYCHROMASIA FEW
[2018-07-26 21:52] LABS: ANISOCYTOSIS 3+
[2018-07-26] MEDS: QUETIAPINE 150 MG TAB.SR.24H PO SCH (21:52)
[2018-07-27] VITALS: BP 124/61
[2018-07-27] MEDS: gabapentin 300mg capsule PO SCH ×4 (02:00→20:34)
[2018-07-27] MEDS: ipratropium/albuterol 3ml nebule NEB PRN ×4 (05:41→20:46)
[2018-07-27] MEDS: HYDROmorphone 1 mg/ml syringe IV PRN ×3 (06:02→22:17)
[2018-07-27] MEDS: ondansetron/PF 4mg/2ml inj IV PRN ×2 (06:02→20:33)
[2018-07-27 06:04] LABS: BASOPHILS % (AUTO) 0.1 % (0-1); EOSINOPHILS # (AUTO) 0.2 X10'3 (0-0.9); EOSINOPHILS % (AUTO) 2.2 % (0-6); HEMATOCRIT 24.7 % (35.0-45.0); HEMOGLOBIN 7.4 g/dl (12.0-16.0); LYMPHOCYTES # (AUTO) 0.5 X10'3 (1.1-4.8); LYMPHOCYTES % (AUTO) 6.5 % (21-51); MEAN CORPUSCULAR HEMOGLOBIN 21.4 PG (27.0-31.0); MEAN CORPUSCULAR VOLUME 71.4 FL (78-98); MEAN PLATELET VOLUME 8.4 FL (7.4-10.4); MONOCYTES # (AUTO) 0.4 X10'3 (0-0.9); MONOCYTES % (AUTO) 5.1 % (2-12); NEUTROPHILS # (AUTO) 6.7 X10'3 (1.8-7.7); NEUTROPHILS % (AUTO) 86.1 % (42-75); PLATELET COUNT 274 X10'3 (140-440); RED BLOOD COUNT 3.45 X10'6 (4.20-5.60); RED CELL DISTRIBUTION WIDTH 21.4 % (11.5-14.5); WHITE BLOOD COUNT 7.8 X10'3 (4.5-11.0)
[2018-07-27 06:15] LABS: ALANINE AMINOTRANSFERASE 107 U/L (12-78); ALBUMIN 3.2 G/DL (3.4-5.0); ALBUMIN/GLOBULIN RATIO 0.9 (1.1-1.5); ALKALINE PHOSPHATASE 132 IU/L (46-116); ANION GAP 10 (8-16); ASPARTATE AMINO TRANSFERASE 46 U/L (10-37); BILIRUBIN,TOTAL 0.2 MG/DL (0.1-1.0); BLOOD UREA NITROGEN 52 MG/DL (7-18); BUN/CREATININE RATIO 46.4 (6.6-38.0); CALCIUM 8.5 MG/DL (8.5-10.1); CHLORIDE 102 MMOL/L (99-107); CREATININE 1.12 MG/DL (0.40-0.90); GLUCOSE 227 MG/DL (70-104); MAGNESIUM 1.5 MG/DL (1.5-2.4); POTASSIUM 4.5 MMOL/L (3.5-5.1); SODIUM 138 MMOL/L (135-145); TOTAL CARBON DIOXIDE 26.5 MMOL/L (24-32); TOTAL PROTEIN 6.9 G/DL (6.4-8.2); eGFR 49 ML/MIN
[2018-07-27 06:30] LABS: ANISOCYTOSIS 3+; LARGE PLATELETS FEW; MICROCYTOSIS 2+; PLATELET ESTIMATE NORMAL
[2018-07-27 06:31] LABS: POLYCHROMASIA 2+
[2018-07-27 07:00] VITALS: BP 129/66
[2018-07-27] MEDS: montelukast 10mg tablet PO SCH (08:00)
[2018-07-27] MEDS: levoFLOXACIN 750MG TABLET PO SCH (09:02)
[2018-07-27] MEDS: citalopram 20mg tablet PO SCH (09:02)
[2018-07-27] MEDS: docusate sod 100mg capsule PO SCH ×2 (09:02→20:34)
[2018-07-27] MEDS: pantoprazole 40mg Tablet.DR PO SCH ×2 (09:03→20:35)
[2018-07-27] MEDS: metoprolol tartrate 25mg tablet PO SCH ×2 (09:03→20:35)
[2018-07-27] MEDS: methylPREDNISolone sod succ 125mg/2ml vial IV SCH ×2 (09:04→20:33)
[2018-07-27] MEDS: insulin Lispro (HumaLOG) vial - multi-dose SQ SCH ×3 (09:19→18:59)
[2018-07-27] MEDS: nicotine 21mg patch - 24 hr TD SCH (09:20)
[2018-07-27] MEDS: nitroGLYCERIN 0.1mg/hour patch TD SCH (09:21)
[2018-07-27] MEDS: furosemide 40mg/4ml inj IV SCH ×2 (09:22→20:33)
[2018-07-27] MEDS: sodium ferric gluc complex inj 125 MG in normal saline 100ml IV soln 100 ML IV SCH (10:50)
[2018-07-27 11:00] VITALS: BP 127/63
[2018-07-27] MEDS: ALPRAZolam 0.25mg tablet PO PRN (14:40)
[2018-07-27] MEDS: HYDROcodone/acetaminophen 10/325mg tab PO PRN ×2 (17:37→23:23)
[2018-07-27 20:00] VITALS: BP 137/70
[2018-07-27] MEDS: QUETIAPINE 150 MG TAB.SR.24H PO SCH (20:33)
[2018-07-27] MEDS: lactobacillus rhamnosus 10,000 MMU CELLS/CAPSULE PO SCH (20:35)
[2018-07-27] MEDS: insulin glargine (Lantus) pen - multi-dose SQ SCH (20:42)
[2018-07-27 23:00] VITALS: BP 109/49
[2018-07-28] MEDS: gabapentin 300mg capsule PO SCH ×4 (01:56→20:56)
[2018-07-28] MEDS: ipratropium/albuterol 3ml nebule NEB PRN ×3 (03:49→20:21)
[2018-07-28 06:00] LABS: BASOPHILS % (AUTO) 0 % (0-1); EOSINOPHILS # (AUTO) 0.1 X10'3 (0-0.9); EOSINOPHILS % (AUTO) 1.4 % (0-6); HEMOGLOBIN 7.4 g/dl (12.0-16.0); LYMPHOCYTES # (AUTO) 0.9 X10'3 (1.1-4.8); LYMPHOCYTES % (AUTO) 9.4 % (21-51); MEAN CORPUSCULAR HEMOGLOBIN 21.9 PG (27.0-31.0); MEAN CORPUSCULAR HGB CONC 30.7 % (33.0-36.5); MEAN CORPUSCULAR VOLUME 71.5 FL (78-98); MEAN PLATELET VOLUME 8.2 FL (7.4-10.4); MONOCYTES # (AUTO) 0.6 X10'3 (0-0.9); MONOCYTES % (AUTO) 6.1 % (2-12); NEUTROPHILS # (AUTO) 7.6 X10'3 (1.8-7.7); NEUTROPHILS % (AUTO) 83.1 % (42-75); PLATELET COUNT 274 X10'3 (140-440); RED BLOOD COUNT 3.36 X10'6 (4.20-5.60); RED CELL DISTRIBUTION WIDTH 21.2 % (11.5-14.5); WHITE BLOOD COUNT 9.1 X10'3 (4.5-11.0)
[2018-07-28 06:35] LABS: ANISOCYTOSIS 3+; ELLIPTOCYTES FEW; HYPOCHROMASIA 2+; PLATELET ESTIMATE NORMAL; POLYCHROMASIA 1+; TARGET CELLS FEW
[2018-07-28 07:00] VITALS: BP 129/59
[2018-07-28 07:03] LABS: ALANINE AMINOTRANSFERASE 76 U/L (12-78); ALBUMIN 3.1 G/DL (3.4-5.0); ALBUMIN/GLOBULIN RATIO 0.9 (1.1-1.5); ALKALINE PHOSPHATASE 114 IU/L (46-116); ANION GAP 10 (8-16); ASPARTATE AMINO TRANSFERASE 21 U/L (10-37); BILIRUBIN,TOTAL 0.2 MG/DL (0.1-1.0); BLOOD UREA NITROGEN 50 MG/DL (7-18); BUN/CREATININE RATIO 40.7 (6.6-38.0); CALCIUM 8.8 MG/DL (8.5-10.1); CHLORIDE 102 MMOL/L (99-107); CREATININE 1.23 MG/DL (0.40-0.90); GLUCOSE 180 MG/DL (70-104); MAGNESIUM 1.4 MG/DL (1.5-2.4); POTASSIUM 4.2 MMOL/L (3.5-5.1); SODIUM 140 MMOL/L (135-145); TOTAL CARBON DIOXIDE 27.9 MMOL/L (24-32); TOTAL PROTEIN 6.7 G/DL (6.4-8.2); eGFR 44 ML/MIN
[2018-07-28] MEDS: HYDROcodone/acetaminophen 10/325mg tab PO PRN ×3 (07:34→20:58)
[2018-07-28] MEDS: furosemide 40mg/4ml inj IV SCH ×2 (08:55→20:57)
[2018-07-28] MEDS: ALPRAZolam 0.25mg tablet PO PRN ×2 (08:55→18:54)
[2018-07-28] MEDS: methylPREDNISolone sod succ 125mg/2ml vial IV SCH ×2 (08:55→20:57)
[2018-07-28] MEDS: montelukast 10mg tablet PO SCH (08:56)
[2018-07-28] MEDS: citalopram 20mg tablet PO SCH (08:56)
[2018-07-28] MEDS: lactobacillus rhamnosus 10,000 MMU CELLS/CAPSULE PO SCH ×2 (08:56→20:56)
[2018-07-28] MEDS: pantoprazole 40mg Tablet.DR PO SCH ×2 (08:56→20:56)
[2018-07-28] MEDS: docusate sod 100mg capsule PO SCH ×2 (08:56→20:00)
[2018-07-28] MEDS: metoprolol tartrate 25mg tablet PO SCH ×2 (08:56→20:58)
[2018-07-28] MEDS: nicotine 21mg patch - 24 hr TD SCH (08:57)
[2018-07-28] MEDS: nitroGLYCERIN 0.1mg/hour patch TD SCH (08:57)
[2018-07-28] MEDS: insulin Lispro (HumaLOG) vial - multi-dose SQ SCH ×3 (09:14→18:52)
[2018-07-28] MEDS: sodium ferric gluc complex inj 125 MG in normal saline 100ml IV soln 100 ML IV SCH (09:32)
[2018-07-28 11:00] VITALS: BP 137/62
[2018-07-28] MEDS: HYDROmorphone 1 mg/ml syringe IV PRN ×2 (12:30→18:54)
[2018-07-28] MEDS ORDERED: [UNRECOGNIZED DRUG - OTHER] SUBCUT (14:45)
[2018-07-28 18:00] VITALS: BP 149/76
[2018-07-28] MEDS: insulin glargine (Lantus) pen - multi-dose SQ SCH (20:54)
[2018-07-28] MEDS: QUETIAPINE 150 MG TAB.SR.24H PO SCH (20:57)
[2018-07-29] VITALS: BP 145/56
[2018-07-29] MEDS: ipratropium/albuterol 3ml nebule NEB PRN ×3 (00:34→08:18)
[2018-07-29] MEDS: gabapentin 300mg capsule PO SCH ×2 (02:00→07:53)
[2018-07-29] MEDS: HYDROcodone/acetaminophen 10/325mg tab PO PRN (05:58)
[2018-07-29 06:02] LABS: BASOPHILS % (AUTO) 0.1 % (0-1); EOSINOPHILS # (AUTO) 0.1 X10'3 (0-0.9); EOSINOPHILS % (AUTO) 1.5 % (0-6); HEMATOCRIT 24.5 % (35.0-45.0); HEMOGLOBIN 7.4 g/dl (12.0-16.0); LYMPHOCYTES # (AUTO) 0.9 X10'3 (1.1-4.8); LYMPHOCYTES % (AUTO) 9.4 % (21-51); MEAN CORPUSCULAR HEMOGLOBIN 21.8 PG (27.0-31.0); MEAN CORPUSCULAR HGB CONC 30.4 % (33.0-36.5); MEAN CORPUSCULAR VOLUME 71.7 FL (78-98); MEAN PLATELET VOLUME 7.5 FL (7.4-10.4); MONOCYTES # (AUTO) 0.6 X10'3 (0-0.9); MONOCYTES % (AUTO) 6.3 % (2-12); NEUTROPHILS # (AUTO) 7.6 X10'3 (1.8-7.7); NEUTROPHILS % (AUTO) 82.7 % (42-75); PLATELET COUNT 301 X10'3 (140-440); RED BLOOD COUNT 3.42 X10'6 (4.20-5.60); RED CELL DISTRIBUTION WIDTH 21.2 % (11.5-14.5); WHITE BLOOD COUNT 9.2 X10'3 (4.5-11.0)
[2018-07-29 06:32] LABS: ALANINE AMINOTRANSFERASE 60 U/L (12-78); ALBUMIN 3.1 G/DL (3.4-5.0); ALBUMIN/GLOBULIN RATIO 0.9 (1.1-1.5); ALKALINE PHOSPHATASE 128 IU/L (46-116); ANION GAP 9 (8-16); ASPARTATE AMINO TRANSFERASE 18 U/L (10-37); BILIRUBIN,TOTAL 0.2 MG/DL (0.1-1.0); BLOOD UREA NITROGEN 56 MG/DL (7-18); BUN/CREATININE RATIO 44.4 (6.6-38.0); CALCIUM 9.1 MG/DL (8.5-10.1); CHLORIDE 101 MMOL/L (99-107); CREATININE 1.26 MG/DL (0.40-0.90); GLUCOSE 278 MG/DL (70-104); MAGNESIUM 1.4 MG/DL (1.5-2.4); POTASSIUM 3.8 MMOL/L (3.5-5.1); SODIUM 139 MMOL/L (135-145); TOTAL CARBON DIOXIDE 28.9 MMOL/L (24-32); TOTAL PROTEIN 6.7 G/DL (6.4-8.2); eGFR 43 ML/MIN
[2018-07-29 07:32] LABS: PLATELET ESTIMATE NORMAL
[2018-07-29 07:33] LABS: ANISOCYTOSIS 3+; HYPOCHROMASIA 1+; MICROCYTOSIS 1+; POLYCHROMASIA 2+; TEAR DROP CELLS 1+
[2018-07-29 07:35] LABS: STOMATOCYTES 1+
[2018-07-29] MEDS: montelukast 10mg tablet PO SCH (07:53)
[2018-07-29] MEDS: lactobacillus rhamnosus 10,000 MMU CELLS/CAPSULE PO SCH (07:53)
[2018-07-29] MEDS: metoprolol tartrate 25mg tablet PO SCH (07:53)
[2018-07-29] MEDS: levoFLOXACIN 750MG TABLET PO SCH (07:53)
[2018-07-29] MEDS: pantoprazole 40mg Tablet.DR PO SCH (07:53)
[2018-07-29] MEDS: citalopram 20mg tablet PO SCH (07:53)
[2018-07-29] MEDS: furosemide 40mg/4ml inj IV SCH (07:54)
[2018-07-29] MEDS: docusate sod 100mg capsule PO SCH (07:54)
[2018-07-29] MEDS: methylPREDNISolone sod succ 125mg/2ml vial IV SCH (07:54)
[2018-07-29] MEDS: nicotine 21mg patch - 24 hr TD SCH (07:55)
[2018-07-29] MEDS: nitroGLYCERIN 0.1mg/hour patch TD SCH (07:55)
[2018-07-29 08:05] VITALS: BP 126/75
[2018-07-29] MEDS: insulin Lispro (HumaLOG) vial - multi-dose SQ SCH (09:40)
[2018-07-29] MEDS: sodium ferric gluc complex inj 125 MG in normal saline 100ml IV soln 100 ML IV SCH (09:41)
[2018-07-29] MEDS: ALPRAZolam 0.25mg tablet PO PRN (09:55)
[2018-07-29] MEDS ORDERED: potassium Cl 40MEQ/NS 500ml 500 ML IV PRN ×2 (10:15)
[2018-07-29] MEDS ORDERED: magnesium Cl slow-release 64mg tablet PO PRN (10:15)
[2018-07-29] MEDS ORDERED: magnesium 4gm in 100ml NS 100 ML IV PRN (10:15)
[2018-07-29] MEDS ORDERED: magnesium 1gm/100ml D5W IVPB 100 ML IV PRN (10:15)
[2018-07-29] MEDS ORDERED: potassium Cl 20 mEq SR tablet PO PRN ×2 (10:15)
[2018-07-29] MEDS ORDERED: IRON150C5 PO (12:03)
[2018-07-29] MEDS ORDERED: FURO-150 PO (12:03)
[2018-07-29] MEDS ORDERED: MAGN200T5 PO (12:03)
[2018-07-29] MEDS ORDERED: PRED20TA PO (12:03)
[2018-07-29] MEDS ORDERED: IPRA4AER IH (12:03)
[2018-07-29] MEDS ORDERED: LEVO750T46 PO (12:03)
[2018-07-29] MEDS ORDERED: MONT10TA24 PO (12:03)
[2018-07-29] MEDS ORDERED: HYDR-4353 PO (12:03)
[2018-07-29 12:25] VITALS: BP 115/61
[2018-07-29] MEDS: HYDROmorphone 1 mg/ml syringe IV PRN (13:00)
== END 2018-07-29 13:55 | disposition home or self-care (01) | DRG 280 ==
LOC: ER 18:24 → ED HOLD 20:53 → SUR 3N 22:58
PROVIDERS: ADMIT Family Medicine; ATTEND Family Medicine
DX: I13.0 Hypertensive heart and chronic kidney disease with heart failure and stage 1 through stage 4 chronic kidney disease, or unspecified chronic kidney disease (principal); I50.23 Acute on chronic systolic (congestive) heart failure; I21.A1 Myocardial infarction type 2; N17.9 Acute kidney failure, unspecified; J44.1 Chronic obstructive pulmonary disease with (acute) exacerbation; D84.9 Immunodeficiency, unspecified; D50.9 Iron deficiency anemia, unspecified; E11.22 Type 2 diabetes mellitus with diabetic chronic kidney disease; E11.65 Type 2 diabetes mellitus with hyperglycemia; E78.00 Pure hypercholesterolemia, unspecified; E78.5 Hyperlipidemia, unspecified; E83.42 Hypomagnesemia; E86.0 Dehydration; E87.5 Hyperkalemia; F03.90 Unspecified dementia, unspecified severity, without behavioral disturbance, psychotic disturbance, mood disturbance, and anxiety; F12.90 Cannabis use, unspecified, uncomplicated; F17.210 Nicotine dependence, cigarettes, uncomplicated; I25.10 Atherosclerotic heart disease of native coronary artery without angina pectoris; I48.91 Unspecified atrial fibrillation; K21.9 Gastro-esophageal reflux disease without esophagitis; Z60.2 Problems related to living alone; M79.7 Fibromyalgia; N18.9 Chronic kidney disease, unspecified; R09.02 Hypoxemia; R79.89 Other specified abnormal findings of blood chemistry; F32.9 Major depressive disorder, single episode, unspecified; F41.9 Anxiety disorder, unspecified; G89.29 Other chronic pain; M19.90 Unspecified osteoarthritis, unspecified site; Z90.710 Acquired absence of both cervix and uterus; Z91.048 Other nonmedicinal substance allergy status; Z90.49 Acquired absence of other specified parts of digestive tract; Z98.51 Tubal ligation status; Z91.041 Radiographic dye allergy status; Z91.040 Latex allergy status; Z88.0 Allergy status to penicillin; Z88.8 Allergy status to other drugs, medicaments and biological substances; Z79.84 Long term (current) use of oral hypoglycemic drugs; Z79.899 Other long term (current) drug therapy; Z87.01 Personal history of pneumonia (recurrent); Z81.1 Family history of alcohol abuse and dependence
CPT/HCPCS: 36415; 36600; 71045; 80053; 80061; 81003; 82803; 82948; 83036; 83540; 83550; 83605; 83735; 83880; 84100; 84145; 84484; 85018; 85025; 85379; 85610; 85730; 86885; 86900; 86901; 87040; 87070; 90732; 93005; 93306; 94640; 94667; 94668; 94760; 96365; 96372; 96375; 99285; G0378; J1170; J1650; J1815; J1885; J1940; J1956; J2405; J2765; J2916; J2930; J7030